=== PATIENT | male | born 1995 | race African-American/Black ===

== ENCOUNTER 2024-03-21 19:18 | Emergency (ER) | payer BC, OTHER ==
[~2024-03-21] VITALS: Ht 188 cm; Wt 95.3 kg
[2024-03-21] MEDS: NITROGLYCERIN 0.4 MG/TAB BOTTLE SL STA (20:16)
[2024-03-21 20:30] LABS: BASOPHILS % (AUTO) 0.5 % (0.0-2.0); EOSINOPHILS # (AUTO) 0.3 K/uL (0.0-0.7); EOSINOPHILS % (AUTO) 4.7 % (0.0-7.0); HEMATOCRIT 41.7 % (36.7-47.1); HEMOGLOBIN 13.6 g/dL (12.5-16.3); LYMPHOCYTES # (AUTO) 2.7 K/uL (0.8-4.8); LYMPHOCYTES % (AUTO) 45.4 % (20.5-51.5); MEAN CORPUSCULAR HGB CONC 33 g/dL (32.5-36.3); MONOCYTES # (AUTO) 0.8 K/uL (0.1-1.30); MONOCYTES % (AUTO) 13.6 % (0.0-11.0); NEUTROPHILS # (AUTO) 2.1 K/uL (1.8-8.9); NEUTROPHILS % (AUTO) 35.8 % (38.5-71.5); PLATELET COUNT (AUTO) 181 K/uL (152-348); RED BLOOD CELL COUNT(AUTO) 4.54 MIL/uL (4.06-5.63); RED CELL DISTRIBUTION WIDTH 13.3 % (12.1-16.2); WHITE BLOOD COUNT (AUTO) 5.9 K/uL (3.6-10.2)
[2024-03-21 20:32] LABS: DIFFERENTIAL COMMENT 1
[2024-03-21 20:45] LABS: ALANINE AMINOTRANSFERASE 65 U/L (16-63); ALBUMIN 3.6 g/dL (3.4-5.0); ALKALINE PHOSPHATASE 113 U/L (50-136); ASPARTATE AMINOTRANSFERASE 37 U/L (15-37); BILIRUBIN,DIRECT 0.1 mg/dL (0.0-0.2); BILIRUBIN,TOTAL 0.4 mg/dL (0.2-1.0); CARBON DIOXIDE 32 mmol/L (21-32); CHLORIDE 105 mmol/L (98-107); GLUCOSE 92 mg/dL (74-106); POTASSIUM 3.9 mmol/L (3.5-5.1); SODIUM SERUM 142 mmol/L (136-145); TOTAL PROTEIN, SERUM 7.6 g/dL (6.4-8.2); UREA NITROGEN, BLOOD 14 mg/dL (7-18)
[2024-03-21 23:07] VITALS: BP 131/79; O2SAT 99
== END 2024-03-21 23:07 | disposition home or self-care (01) ==
LOC: ER 19:18
DX: R07.89 Other chest pain (principal); I10 Essential (primary) hypertension; J45.909 Unspecified asthma, uncomplicated; Z98.890 Other specified postprocedural states; Z88.5 Allergy status to narcotic agent
CPT/HCPCS: 36415; 71045; 84484; 85025; 85730; A4606; A4663

== ENCOUNTER 2024-09-22 23:41 | Emergency (ER) | payer BC ==
[~2024-09-22] VITALS: Ht 188 cm; Wt 97.5 kg
[2024-09-23 00:31] LABS: BASOPHILS # (AUTO) 0.1 K/UL (0.0-0.2); BASOPHILS % (AUTO) 1.1 % (0.0-2.0); EOSINOPHILS # (AUTO) 0.4 K/uL (0.0-0.7); EOSINOPHILS % (AUTO) 5.1 % (0.0-7.0); HEMATOCRIT 44.7 % (36.7-47.1); HEMOGLOBIN 15.1 g/dL (12.5-16.3); LYMPHOCYTES # (AUTO) 2.5 K/uL (0.8-4.8); MEAN CORPUSCULAR HEMOGLOBIN 30.8 uug (23.8-33.4); MEAN CORPUSCULAR HGB CONC 34 g/dL (32.5-36.3); MEAN CORPUSCULAR VOLUME 91.2 fL (73.0-96.2); MONOCYTES # (AUTO) 0.7 K/uL (0.1-1.30); MONOCYTES % (AUTO) 10.2 % (0.0-11.0); NEUTROPHILS # (AUTO) 3.4 K/uL (1.8-8.9); NEUTROPHILS % (AUTO) 48.6 % (38.5-71.5); PLATELET COUNT (AUTO) 221 K/uL (152-348)
[2024-09-23 00:34] LABS: DIFFERENTIAL COMMENT 1
[2024-09-23] MEDS ORDERED: ASPIRIN 81 MG TAB.CHEW ONE (00:37)
[2024-09-23 00:38] LABS: CARBON DIOXIDE 29 mmol/L (21-32); CHLORIDE 102 mmol/L (98-107); GLUCOSE 88 mg/dL (74-106); POTASSIUM 3.6 mmol/L (3.5-5.1); SODIUM SERUM 142 mmol/L (136-145); UREA NITROGEN, BLOOD 15 mg/dL (7-18)
[2024-09-23] MEDS: ASPIRIN 81 MG TAB.CHEW PO ONE (00:42)
[2024-09-23 00:50] LABS: ALANINE AMINOTRANSFERASE 69 U/L (16-63); ALBUMIN 3.9 g/dL (3.4-5.0); ALKALINE PHOSPHATASE 94 U/L (50-136); ASPARTATE AMINOTRANSFERASE 55 U/L (15-37); BILIRUBIN,DIRECT 0.2 mg/dL (0.0-0.2); BILIRUBIN,TOTAL 0.4 mg/dL (0.2-1.0); NT-PRO BNP < 5 pg/mL (0-125); TOTAL PROTEIN, SERUM 8.1 g/dL (6.4-8.2)
[2024-09-23 03:31] VITALS: BP 131/71; O2SAT 100
== END 2024-09-23 | disposition home or self-care (01) ==
LOC: ER 09-23 00:01
DX: R07.9 Chest pain, unspecified (principal); F41.9 Anxiety disorder, unspecified; J45.909 Unspecified asthma, uncomplicated; Z88.5 Allergy status to narcotic agent; Z86.79 Personal history of other diseases of the circulatory system
CPT/HCPCS: 36415; 71045; 84484; 85025; A4606; A4663

== ENCOUNTER 2025-01-14 00:32 | Emergency (ER) | payer BC ==
[~2025-01-14] VITALS: Ht 188 cm; Wt 97.5 kg
[2025-01-14 00:46] VITALS: O2SAT 97
== END 2025-01-14 03:31 | disposition left against medical advice (07) ==
LOC: ER 00:40
DX: M79.662 Pain in left lower leg (principal); J45.909 Unspecified asthma, uncomplicated; M79.605 Pain in left leg; Z88.5 Allergy status to narcotic agent
CPT/HCPCS: A4606; A4663